=== PATIENT | male | born 1940 | race Caucasian/White ===

== ENCOUNTER 2019-01-05 13:30 | Day surgery (SDC) | payer OTHER ==
[~2019-01-05 13:30] MED LIST: ALBU90OI6 INH; ALPR1 PO; BENA10 PO; LEVFLO500 PO; METO100ER PO; MOME220I IH; OMEP20ER PO; PRED10 PO; Prednisone10 MG PO; ROSU10TA PO; TAMS.4ER PO; TIOT18 IH
== END 2019-01-05 22:58 | disposition home or self-care (01) ==
LOC: WOUND 13:30
DX: L97.821 Non-pressure chronic ulcer of other part of left lower leg limited to breakdown of skin (principal); S91.302A Unspecified open wound, left foot, initial encounter; I10 Essential (primary) hypertension; E78.5 Hyperlipidemia, unspecified; F41.9 Anxiety disorder, unspecified; J44.9 Chronic obstructive pulmonary disease, unspecified; F17.210 Nicotine dependence, cigarettes, uncomplicated; Z88.8 Allergy status to other drugs, medicaments and biological substances; Z79.82 Long term (current) use of aspirin; Z79.899 Other long term (current) drug therapy; X58.XXXA Exposure to other specified factors, initial encounter
CPT/HCPCS: G0463

== ENCOUNTER 2019-01-15 11:04 | Day surgery (SDC) | payer OTHER | END 2019-01-15 23:02 | disposition home or self-care (01) | LOC: WOUND 11:04 | DX: L97.821 Non-pressure chronic ulcer of other part of left lower leg limited to breakdown of skin (principal); I73.9 Peripheral vascular disease, unspecified; S91.302A Unspecified open wound, left foot, initial encounter; L97.811 Non-pressure chronic ulcer of other part of right lower leg limited to breakdown of skin; I10 Essential (primary) hypertension; F17.210 Nicotine dependence, cigarettes, uncomplicated; E78.5 Hyperlipidemia, unspecified; F41.9 Anxiety disorder, unspecified; J44.9 Chronic obstructive pulmonary disease, unspecified; Z79.899 Other long term (current) drug therapy | CPT/HCPCS: G0463 ==

== ENCOUNTER 2019-01-29 14:51 | Day surgery (SDC) | payer OTHER | END 2019-01-29 23:02 | disposition home or self-care (01) | LOC: WOUND 14:51 | DX: L97.522 Non-pressure chronic ulcer of other part of left foot with fat layer exposed (principal); I73.9 Peripheral vascular disease, unspecified; S91.302D Unspecified open wound, left foot, subsequent encounter; I10 Essential (primary) hypertension; E78.5 Hyperlipidemia, unspecified; F41.9 Anxiety disorder, unspecified; F17.210 Nicotine dependence, cigarettes, uncomplicated; Z79.899 Other long term (current) drug therapy | CPT/HCPCS: G0463 ==

== ENCOUNTER 2019-02-12 00:28 | Day surgery (SDC) | payer OTHER | END 2019-02-12 23:06 | disposition home or self-care (01) | LOC: WOUND 00:28 | DX: L97.821 Non-pressure chronic ulcer of other part of left lower leg limited to breakdown of skin (principal); I73.9 Peripheral vascular disease, unspecified; I10 Essential (primary) hypertension; E78.5 Hyperlipidemia, unspecified; F41.9 Anxiety disorder, unspecified; J44.9 Chronic obstructive pulmonary disease, unspecified; F17.210 Nicotine dependence, cigarettes, uncomplicated; Z79.899 Other long term (current) drug therapy | CPT/HCPCS: 87070; 87075; 87205 ==

== ENCOUNTER 2019-02-19 14:49 | Day surgery (SDC) | payer OTHER | END 2019-02-19 23:06 | disposition home or self-care (01) | LOC: WOUND 14:49 | DX: I96 Gangrene, not elsewhere classified (principal); L97.522 Non-pressure chronic ulcer of other part of left foot with fat layer exposed; I89.0 Lymphedema, not elsewhere classified; I10 Essential (primary) hypertension; D46.9 Myelodysplastic syndrome, unspecified; E78.5 Hyperlipidemia, unspecified; F41.9 Anxiety disorder, unspecified; J44.9 Chronic obstructive pulmonary disease, unspecified; F17.210 Nicotine dependence, cigarettes, uncomplicated; R73.02 Impaired glucose tolerance (oral); Z79.52 Long term (current) use of systemic steroids; Z79.899 Other long term (current) drug therapy | CPT/HCPCS: G0463 ==

== ENCOUNTER 2019-02-26 00:48 | Day surgery (SDC) | payer OTHER | END 2019-02-26 23:13 | disposition home or self-care (01) | LOC: WOUND 00:48 | DX: L97.821 Non-pressure chronic ulcer of other part of left lower leg limited to breakdown of skin (principal); I10 Essential (primary) hypertension; F41.9 Anxiety disorder, unspecified; J44.9 Chronic obstructive pulmonary disease, unspecified; F17.210 Nicotine dependence, cigarettes, uncomplicated; E78.5 Hyperlipidemia, unspecified; Z79.899 Other long term (current) drug therapy ==

== ENCOUNTER 2019-03-12 00:32 | Day surgery (SDC) | payer OTHER | END 2019-03-12 23:56 | disposition home or self-care (01) | LOC: WOUND 00:32 | DX: L97.821 Non-pressure chronic ulcer of other part of left lower leg limited to breakdown of skin (principal); I73.9 Peripheral vascular disease, unspecified; I87.2 Venous insufficiency (chronic) (peripheral); I10 Essential (primary) hypertension; J44.9 Chronic obstructive pulmonary disease, unspecified; F17.210 Nicotine dependence, cigarettes, uncomplicated; E78.5 Hyperlipidemia, unspecified; F41.9 Anxiety disorder, unspecified; Z79.899 Other long term (current) drug therapy ==

== ENCOUNTER 2019-03-26 00:25 | Day surgery (SDC) | payer OTHER | END 2019-03-26 23:03 | disposition home or self-care (01) | LOC: WOUND 00:25 | DX: L97.821 Non-pressure chronic ulcer of other part of left lower leg limited to breakdown of skin (principal); I73.9 Peripheral vascular disease, unspecified; I10 Essential (primary) hypertension; J44.9 Chronic obstructive pulmonary disease, unspecified; F17.210 Nicotine dependence, cigarettes, uncomplicated; E78.5 Hyperlipidemia, unspecified; F41.9 Anxiety disorder, unspecified; Z79.899 Other long term (current) drug therapy ==

== ENCOUNTER 2019-04-16 00:21 | Day surgery (SDC) | payer OTHER ==
[~2019-04-16 00:21] MED LIST changes: -BENA10 PO; -PRED10 PO; -ROSU10TA PO; -TAMS.4ER PO
== END 2019-04-16 23:12 | disposition home or self-care (01) ==
LOC: WOUND 00:21
DX: L97.821 Non-pressure chronic ulcer of other part of left lower leg limited to breakdown of skin (principal); J44.9 Chronic obstructive pulmonary disease, unspecified; I87.2 Venous insufficiency (chronic) (peripheral); I73.9 Peripheral vascular disease, unspecified; F17.210 Nicotine dependence, cigarettes, uncomplicated; I10 Essential (primary) hypertension; E78.5 Hyperlipidemia, unspecified; F41.9 Anxiety disorder, unspecified; Z99.81 Dependence on supplemental oxygen; Z79.899 Other long term (current) drug therapy
CPT/HCPCS: G0463

== ENCOUNTER 2019-05-10 14:19 | Inpatient (IN) | payer OTHER ==
[~2019-05-10] VITALS: Ht 188 cm; Wt 65.5 kg
[2019-05-10 15:04] LABS: BASOPHILS ABSOLUTE AUTO 0.04 K/mm3 (0.00-0.23); BASOPHILS PERCENT AUTO 0 % (0-2); EOSINOPHILS PERCENT AUTO 0 % (0-6); Hematocrit 28.4 % (37.0-53.0); Hemoglobin 9.3 g/dL (13.5-17.5); IMMATURE GRAN ABSOLUTE AUTO 0.38 K/mm3 (0.00-0.10); IMMATURE GRAN PERCENT AUTO 2 % (0-1); LYMPHOCYTES ABSOLUTE AUTO 0.22 K/mm3 (0.84-5.20); LYMPHOCYTES PERCENT AUTO 1 % (21-46); MONOCYTES ABSOLUTE AUTO 0.68 K/mm3 (0.16-1.47); MONOCYTES PERCENT AUTO 3 % (4-13); Mean Corpuscular HGB 34.4 pg (26.0-34.0); Mean Corpuscular HGB Conc 32.7 g/dL (31.5-36.5); Mean Corpuscular Volume 105 fL (80-100); NEUTROPHILS PERCENT AUTO 94 % (41-73); NRBC ABSOLUTE 0.09 K/mm3 (0.00-0.02); NRBC Auto 0.4 /100 WBC (0.0-0.2); Platelet Count 132 K/mm3 (150-400); RDW Standard Deviation 57.3 fL (35.1-46.3); White Blood Cell Count 21.22 K/mm3 (4.00-11.30)
[2019-05-10 15:05] LABS: Mean Platelet Volume 13.5 fL (9.1-12.4)
[2019-05-10 15:18] LABS: Alanine Aminotransfer (ALT/SGP 39 U/L (12-78); Albumin, Blood 2.5 g/dL (3.4-5.0); Alk Phos 77 U/L (50-136); Anion Gap 5 mmol/L (6-16); Aspartate Aminotrans (AST/SGOT 14 U/L (12-37); Bilirubin, Total 0.4 mg/dL (0.1-1.0); Blood Urea Nitrogen 74 mg/dL (8-24); Bun/Creatinine Ratio 98.7 (12.0-20.0); CO2, Blood 31 mmol/L (21-32); Calcium, Blood 8.2 mg/dL (8.5-10.1); Chloride, Blood 106 mmol/L (98-108); Creatinine, Blood 0.75 mg/dL (0.60-1.20); Globulin, Blood 2.4 g/dL (2.2-4.0); Glomerular Filtration Rate >60 (60-); Glucose, Blood 111 mg/dL (70-99); Potassium, Blood 4.9 mmol/L (3.5-5.5); Sodium, Blood 142 mmol/L (136-145); Total Protein, Blood 4.9 g/dL (6.4-8.2); Troponin I 0.016 ng/mL (0.000-0.040)
[2019-05-10] MEDS ORDERED: DULERA 200 MCG/13 GM INH (15:34)
[2019-05-10 15:55] LABS: Bicarbonate Venous 28.6 mmol/L (24.0-30.0); PO2 Venous 44.9 mmHg (38-42); pH Blood Venous 7.32 (7.34-7.37)
[2019-05-10] MEDS ORDERED: ALPRAZOLAM0.5 M1 PO (15:56)
[2019-05-10] MEDS ORDERED: HYDROCODONE-AC1 EAC1 PO (15:58)
[2019-05-10] MEDS ORDERED: ASPIR 8181 M1 PO (16:10)
[2019-05-10] MEDS ORDERED: TAMS.4ER PO (16:10)
[2019-05-10] MEDS ORDERED: ROSU10TA PO (16:13)
[2019-05-10] MEDS ORDERED: Benazepril HCl20 MG PO (16:13)
[2019-05-10] MEDS ORDERED: PRED5 PO (16:15)
[2019-05-10] MEDS ORDERED: Duoneb 2.5-0.5 M3 ML NEB (16:19)
[2019-05-10] MEDS ORDERED: DILTIAZEM 24HR240 M3 PO (16:20)
[2019-05-10 16:38] LABS: Source, Urine Voided
[2019-05-10 16:52] LABS: Bilirubin, Urine Neg (Neg); Blood, Urine 1+ (Neg); Glucose Qualitative, Urine Neg (Neg); Ketones, Urine 1+ (Neg); Leukocyte Esterase, Urine Neg (Neg); Nitrite, Urine Neg (Neg); Protein, Urine Neg (Neg); Specific Gravity, Urine 1.015 (1.003-1.022); Urobilinogen, Urine NORM (Normal)
[2019-05-10 17:04] LABS: Appearance, Urine Clear (Clear); Color, Urine Yellow (P-Yellow)
[2019-05-10 17:09] LABS: Bacteria Rare /hpf; Red Blood Cells, Urine 0-2 /hpf (0-2); Squamous Epithelial Cells Rare /hpf (Few); White Blood Cells, Urine 0-2 /hpf (0-5)
--- NOTE | 2019-05-10 17:30 | NUR ---
PT ADMITTED TO ICU AT 1700. PT ARRIVED AWAKE AND ORIENTED, VERY LITTLE SHELL TRIBE, AND VERY DYSPNEIC WITH RESP RATE 40'S; USING ACCESSORY MUSCLES. PT HYPOTENSIVE W MAP 50'S. NS INFUSING AT 200CC/HR. PT WISHES TO BE DNR/DNI; BUT IS AGREEABLE TO BIPAP IF NEEDED. PT DENIES C/O PAIN, BUT C/O SOB AND REQUESTS TO SIT UPRIGHT. RYTHYM SINUS W RATE 90'S. LUNGS VERY DIMINISHED T/O, COARSE, WET, NON-PRODUCTIVE COUGH. DR CASH AT BEDSIDE. PT MAY REQUIRE CRITICAL CONSULT AND POSSIBLE PICC LINE/BIPAP.
[2019-05-10 18:40] LABS: Source, Urine Catheter
[2019-05-10 18:57] LABS: Bilirubin, Urine Neg (Neg); Blood, Urine Neg (Neg); Glucose Qualitative, Urine Neg (Neg); Ketones, Urine 1+ (Neg); Leukocyte Esterase, Urine Neg (Neg); Nitrite, Urine Neg (Neg); Protein, Urine Neg (Neg); Urobilinogen, Urine NORM (Normal)
[2019-05-10 19:09] LABS: Appearance, Urine Clear (Clear); Color, Urine Yellow (P-Yellow)
--- NOTE | 2019-05-10 19:30 | NUR ---
PATIENT HAVING DIFFICULTY WITH KEEPING BIPAP IN PLACE, VERBALIZED FEELING IF IT IS SUFFOCATING HIM. ATTEMPT TO PLACE ON 7L/NC BIOX LOW 80'S. DOCTOR MARIELENA IN TO SEE PATIENT, DECIDING TO NOT PLACE NG, AND WILL CONTINUE PROTONIX DRIP, PATIENT CAN HAVE SIPS OF WATER. ATIVAN GIVEN TO HELP PATIENT RELAX AND PICC LINE PLACED TO LEFT UPPER ARM
[2019-05-10] MEDS ORDERED: Aspir 8181 MG PO (19:43)
[2019-05-10] MEDS ORDERED: ALEVE220 MG PO (19:45)
--- NOTE | 2019-05-10 20:48 | NUR ---
DR SCALES AND DR PEGUERO CONSULTED ON PT. ONE UNIT OF [facility]S STARTED PER DR SCALES. 500CC NS BOLUS GIVEN PRIOR TO BLOOD PER DR CASH. URINARY CATHETER PLACED W/O DIFF D/T RETENTION/FREQUENCY/URGENCY AND SEPSIS/RESP FAILURE STATUS PER DR SCALES. UROJET/LIDOCAINE USED. PT TOLERATED PROCEDURE VERY WELL. DR SCALES SPOKE W PT'S . CONSENT WAS OBTAINED FOR PICC LINE ACCESS IS POOR AND PT MAY REQUIRE PRESSORS FOR HYPOTENSION. BIPAP ORDERED BY DR SCALES ANDF PLACED BY RT 01/16. REPORT GIVEN TO ANAMIKA GARCIA AT 1930. PICC PLACED ONCE PT PLACED ON BIPAP. PT REQUIRED ATIVAN TO KEEP BIPAP ON. PICC PLACED TO KATINA W/O DIFFICULTY.
--- NOTE | 2019-05-11 01:38 | NUR ---
PATIENT HAVING DIFFICULT TIME KEEPING NON-REBREATHER MASK IN PLACE. PATIENT ALSO TAKING OF OXYGEN WHEN USING THE NC. WHEN BIPAP IN PLACE PATIENT BECOMING VERY AGITATED AND VERBALIZED THAT IT WAS MAKING HIM FEEL IF HE IS GOING TO PASS OUT. WHEN REPLACING NON-REBREATHER MASK PATIENT VERBALIZED " WHY CAN'T YOU LET ME SLEEP" DOCTOR LOYDA GIVEN A UPDATE AND ORDER OBTAINED FOR PRECEDEX AND LEVOPHED. WILL CONTINUE TO ATTEMPT TO KEEP OXYGEN IN PLACE.
[2019-05-11 03:29] LABS: BASOPHILS ABSOLUTE AUTO 0.03 K/mm3 (0.00-0.23); BASOPHILS PERCENT AUTO 0 % (0-2); EOSINOPHILS PERCENT AUTO 0 % (0-6); Hematocrit 29.4 % (37.0-53.0); Hemoglobin 9.7 g/dL (13.5-17.5); IMMATURE GRAN ABSOLUTE AUTO 0.27 K/mm3 (0.00-0.10); IMMATURE GRAN PERCENT AUTO 1 % (0-1); LYMPHOCYTES PERCENT AUTO 1 % (21-46); MONOCYTES ABSOLUTE AUTO 0.33 K/mm3 (0.16-1.47); MONOCYTES PERCENT AUTO 2 % (4-13); Mean Corpuscular HGB 33.7 pg (26.0-34.0); NEUTROPHILS ABSOLUTE AUTO 18.89 K/mm3 (1.96-9.15); NEUTROPHILS PERCENT AUTO 96 % (41-73); NRBC ABSOLUTE 0.08 K/mm3 (0.00-0.02); NRBC Auto 0.4 /100 WBC (0.0-0.2); Platelet Count 114 K/mm3 (150-400); RDW Coefficient Variation 16.3 % (11.7-14.2); Red Blood Cell Count 2.88 M/mm3 (4.30-5.90); White Blood Cell Count 19.62 K/mm3 (4.00-11.30)
[2019-05-11 03:30] LABS: Mean Corpuscular Volume 102 fL (80-100); Mean Platelet Volume 13.4 fL (9.1-12.4)
[2019-05-11 03:45] LABS: Alanine Aminotransfer (ALT/SGP 34 U/L (12-78); Albumin, Blood 2.3 g/dL (3.4-5.0); Alk Phos 71 U/L (50-136); Anion Gap 5 mmol/L (6-16); Aspartate Aminotrans (AST/SGOT 12 U/L (12-37); Bilirubin, Total 0.4 mg/dL (0.1-1.0); Blood Urea Nitrogen 64 mg/dL (8-24); Bun/Creatinine Ratio 104.4 (12.0-20.0); CO2, Blood 30 mmol/L (21-32); Calcium, Blood 8.1 mg/dL (8.5-10.1); Chloride, Blood 111 mmol/L (98-108); Creatinine, Blood 0.61 mg/dL (0.60-1.20); Globulin, Blood 2.3 g/dL (2.2-4.0); Glomerular Filtration Rate >60 (60-); Glucose, Blood 112 mg/dL (70-99); Potassium, Blood 4.9 mmol/L (3.5-5.5); Sodium, Blood 146 mmol/L (136-145); Total Protein, Blood 4.6 g/dL (6.4-8.2)
--- NOTE | 2019-05-11 06:00 | NUR ---
SUMMARY PATIENT REMOVING OXYGEN T/O NIGHT, BIOX DOWN TO 60% ON RA. DUE TO CONTINUED DROP IN BIOX AT APROX 0330 ORDER OBTAINED FOR PRECEDEX AND TO PLACE BIPAP. PATIENT REQUIRING BILAT WRIST RESTRAINTS TO REMEMBER TO NOT PULL ON BIPAP AND OTHER LINES. NO BM T/O NIGHT. NO C/O NAUSEA.
--- NOTE | 2019-05-11 08:30 | NUR ---
PT REMAINS ON BIPAP WITH PRECEDEX GTT INFUSING. CONTINUES TO BE RESTLESS IN BED AND PULLING OFF TUBES FROM BIPAP WITH BILATERAL WRIST RESTRAINTS IN PLACE. CONTINUE TO RE-ORIENT AND REPOSITION FOR COMFORT. NPO STATUS FOR NOW UNTIL INCREASE IN MENTATION, ORAL CARE DONE FOR DRY MOUTH. CONTINUE TO MONITOR AND TX PER ORDERS.
--- NOTE | 2019-05-11 14:25 | NUR ---
TOOK BIPAP OFF FOR ORAL CARE. INCREASE MENTATION NOTED. A&O X3. EXPRESSED DOES NOT LIKE TO WEAR BIPAP. RE-EDUCATED REASON FOR BIPAP. TRIAL OF HIGH FLOW O2 15L NC PLACED BUT SATS DECREASED TO 86% BUT ABLE TO RAISE SATS AFTER MOUTH CLOSED AND SLOW DEEP BREATHING EXERCISES. BP NOT STABLE OFF BIPAP. INSTRUCTED TO PATIENT TO PLACE BIPAP BACK. PATIENT ASKING FOR A PEPSI TO DRINK, STATES "I HAVEN'T EATEN IN TWO DAYS". WILL DISCUSS WITH DR SANZ REGARDING TX PLAN.
--- NOTE | 2019-05-11 18:37 | NUR ---
SHIFT SUMMARY PT BEEN ON BIPAP MOST OF SHIFT WITH X2 BREAKS WITH 02 HIGH FLOW 15L. INCREASE MENTATION THIS AFTERNOON. TALKING WITH STAFF AND VERY AWARE OF DISEASE PROCESS. LUNGS WITH OCC. COARSE WHEEZE BUT OTHERWISE CLEAR/DIMINISHED. REMAINS NPO UNTIL THIS EVENING WHEN DR PEGUERO ADVANCED DIET TO FULL LIQUIDS. PT REQUESTING FOR PEPSI TO DRINK; TOLERATED WELL WITH NO COUGHING NOTED. PRECEDEX GTT INFUSING, DC'D RESTRAINTS DUE TO MEETING CRITERIA. WILL REPLACE BIPAP IF SATS <88% PRN. NO OTHER CHANGES NOTED. WILL REPORT OFF TO NOC SHIFT.
[2019-05-11] MEDS ORDERED: DULERA 200 MCG/13 GM INH (19:28)
[2019-05-11] MEDS ORDERED: PROAIR DIGIHAL90 MCG INH (19:28)
--- NOTE | 2019-05-11 20:04 | NUR ---
PATIENT RESTING QUIETLY IN BED, BIPAP OFF AND PLACED ON 9L/NC. PATIENT ABLE TO HOLD GOOD CONVERSATION WITH BIOX 88-91% OCCASIONAL MOIST NONPRODUCTIVE COUGH. PATIENT VERBALIZED THAT HE DOESN'T WANT TO GO BACK ON THE BIPAP, "I WANT TO GO LIKE MY MOM DID" "PAIN FREE AND IN HER SLEEP WITH THAT FAKE MORPHINE" PATIENT INFORMED THAT I WILL TRY NOT TO REPLACE THE BIPAP IF WE DON'T NEED TO. PRECEDEX CONTINUES AT 0.4MCG TO HELP PATIENT REMAIN RELAXED AND CALM. PROTONIX DRIP CONTINUES, NO C/O ABD PAIN OR NAUSEA.
[2019-05-12 04:41] LABS: BASOPHILS ABSOLUTE AUTO 0.01 K/mm3 (0.00-0.23); BASOPHILS PERCENT AUTO 0 % (0-2); EOSINOPHILS PERCENT AUTO 0 % (0-6); Hematocrit 22.4 % (37.0-53.0); Hemoglobin 7.2 g/dL (13.5-17.5); IMMATURE GRAN PERCENT AUTO 1 % (0-1); LYMPHOCYTES ABSOLUTE AUTO 0.15 K/mm3 (0.84-5.20); LYMPHOCYTES PERCENT AUTO 1 % (21-46); MONOCYTES ABSOLUTE AUTO 0.43 K/mm3 (0.16-1.47); MONOCYTES PERCENT AUTO 3 % (4-13); Mean Corpuscular HGB 33.2 pg (26.0-34.0); Mean Corpuscular HGB Conc 32.1 g/dL (31.5-36.5); Mean Corpuscular Volume 103 fL (80-100); NEUTROPHILS ABSOLUTE AUTO 13.92 K/mm3 (1.96-9.15); NEUTROPHILS PERCENT AUTO 95 % (41-73); NRBC ABSOLUTE 0.09 K/mm3 (0.00-0.02); NRBC Auto 0.6 /100 WBC (0.0-0.2); Platelet Count 95 K/mm3 (150-400); RDW Coefficient Variation 15.9 % (11.7-14.2); RDW Standard Deviation 59.5 fL (35.1-46.3); Red Blood Cell Count 2.17 M/mm3 (4.30-5.90); White Blood Cell Count 14.71 K/mm3 (4.00-11.30)
[2019-05-12 04:46] LABS: Mean Platelet Volume 13.1 fL (9.1-12.4)
[2019-05-12 04:57] LABS: Albumin, Blood 2.5 g/dL (3.4-5.0); Anion Gap 3 mmol/L (6-16); Blood Urea Nitrogen 44 mg/dL (8-24); Bun/Creatinine Ratio 84.6 (12.0-20.0); CO2, Blood 32 mmol/L (21-32); Calcium, Blood 7.9 mg/dL (8.5-10.1); Chloride, Blood 111 mmol/L (98-108); Creatinine, Blood 0.52 mg/dL (0.60-1.20); Glomerular Filtration Rate >60 (60-); Glucose, Blood 215 mg/dL (70-99); Phosphorus, Blood 2.9 mg/dL (2.5-4.9); Potassium, Blood 4.2 mmol/L (3.5-5.5); Sodium, Blood 146 mmol/L (136-145)
--- NOTE | 2019-05-12 05:56 | NUR ---
SUMMARY PATIENT SLEEPING OFF AND ON T/O NIGHT. PATIENT REFUSING BIPAP. OXYGEN IN PLACE TITRATING UP TO 11L/ HIGH FLOW N/C. PATIENT REQUESTING PEPSI TO DRINK, FEEDING SELF WITH NO DIFFICULTY. WHILE SLEEPING PATIENT HAS WET SOUNDING RESP, AWAKENS EASILY AND HAS STRONG COUGH, PRODUCING SMALL AMT OF THICK YELLOW SPUTUM. AT TIMES PRODUCING DARK BROWN SPUTUM LOOKING LIKE PEPSI. NO C/O PAIN OR NAUSEA. NO BM T/O NIGHT. H&H DROP I&O POSITIVE. PRECEDEX NOW OFF AND PATIENT RESTING QUIETLY. PATIENT HAS VERBALIZED SEVERAL TIMES DESIRE TO GO HOME
--- NOTE | 2019-05-12 08:53 | NUR ---
PT AWAKE AND COMMUNICATING WITH STAFF. REQUESTING FOR A PEPSI TO DRINK. REMAINS OFF BIPAP AND ON 11L HIGH FLOW O2 NC WITH SATS 88-89%. SOB NOTED WITH TALKING AND TACHYPNEIC NOTED. LUNGS WET SOUNDING WITH FAINT WHEEZE. UPPER AIRWAY WET RATTLE NOTED. SMALL AMOUNT LIGHT BAGLEY SECRETIONS WITH BROWN FLEX NOTED. REFUSING TO EAT BREAKFAST, BUT WILLING TO DRINK ENSURE DRINK ALONG WITH PEPSI, STATES "I JUST NOT HUNGRY". UP TO CHAIR WITH LIFT; TOLERATED WELL. CONTINUE TO TX PER ORDERS
--- NOTE | 2019-05-12 13:59 | NUR ---
called back she was tearfull he was confussed and conversation difficult. She wants to stay the course for now but wants him comfortable. advised her that phsycians may call with change of plan if he worsens
--- NOTE | 2019-05-12 17:33 | NUR ---
SHIFT SUMMARY PT AWAKE AND ALERT WITH OCCASIONAL CONFUSION NOTED AT TIMES BUT REDIRECTS WELL. VERY [place]. HAS REMAINED OFF BIPAP T/O THE DAY. WAS TOLERATING HIGH FLOW O2 AND WAS ABLE TO TITRATE O2 LEVELS DOWN TO 7L/NC KEEPING SATS >88%. SOB NOTED WITH EXERTION AND TACHYPNEIC WHILE LAYING IN BED WHEN TALKING. LUNGS VERY MOIST AT BEGINNING OF SHIFT BUT HAVE IMPROVE TO CLEAR/COARSE/RALES AT TIMES. ALBUMIN AND LASIX GIVEN X1 ALONG WITH 1 UNIT PRBC GIVEN FOR LOW HGB. VSS. POOR APPETITE, NOT WANTING TO EAT FOOD ONLY LIQUID DRINKS. ABLE TO TAKE IN SUPPLEMENTAL DRINKS, TOLERATING WELL. PATIENT STATING WANTING TO HAVE A BOWEL MOVEMENT BUT IS HOLDING IT IN. INSTRUCTED/RE-EDUCATED THE IMPORTANCE TO HAVE A BOWEL MOVEMENT, ATTENDS IN PLACE. PICC LINE DRESSING CHANGED. UP TO CHAIR WITH LIFT; TOLERATED WELL. NO OTHER CHANGES NOTED, CONTINUE TO TX PRN. WILL REPORT OFF TO NOC SHIFT.
--- NOTE | 2019-05-12 22:00 | NUR ---
PATIENT RESTING IN BED, BIOX DROPPING TO LOW 80'S. REQUIRING 11L/NC AND NON-REBREATHER MASK FLUSH TO MAINTAIN BIOX 88-90% PATIENT AWAKE ANSWERING ALL QUESTIONS APPROPRIATELY, MOIST COUGH WITH SMALL AMT OF LIGHT YELLOW SPUTUM. PRECEDEX IV RESTARTED TO HELP PATIENT RELAX. DOCTOR YVON NOTIFIED OF CHANGE IN CONDITION AND PATIENTS CONTINUED REFUSAL OF BIPAP. PATIENT ASSISTING WITH REPOSITIONING IN BED FOR COMFORT.
--- NOTE | 2019-05-12 23:11 | NUR ---
PATIENT MORE RELAXED AND MAINTAINING BIOX ON 9L/NC. PATIENT SLIGHTLY FORGETFUL REORIENTATION EASILY. PRECEDEX CONTINUES AT 0.4MCG
--- NOTE | 2019-05-13 02:07 | NUR ---
PATIENT INCONT OF LARGE THICK LIQUID BLACK/ MAROON WITH BLACK CLOTS. LINEN CHANGED AND ATTENDS PLACED
--- NOTE | 2019-05-13 03:04 | NUR ---
PATIENT CONTINUES TO HAVE FREQUENT LIQUID DARK MAROON STOOLS, FEWER CLOTS AND MORE LIQUID NOW. PATIENT PLACED ON NON-REBREATHER MASK ALONG WITH N/C DURING ATTENDS CHANGE DUE TO DROP IN BIOX AND SOB
[2019-05-13 04:39] LABS: BASOPHILS ABSOLUTE AUTO 0.01 K/mm3 (0.00-0.23); BASOPHILS PERCENT AUTO 0 % (0-2); EOSINOPHILS PERCENT AUTO 0 % (0-6); Hematocrit 18.5 % (37.0-53.0); Hemoglobin 6.2 g/dL (13.5-17.5); IMMATURE GRAN ABSOLUTE AUTO 0.24 K/mm3 (0.00-0.10); IMMATURE GRAN PERCENT AUTO 2 % (0-1); LYMPHOCYTES ABSOLUTE AUTO 0.19 K/mm3 (0.84-5.20); LYMPHOCYTES PERCENT AUTO 1 % (21-46); MONOCYTES ABSOLUTE AUTO 0.65 K/mm3 (0.16-1.47); MONOCYTES PERCENT AUTO 5 % (4-13); Mean Corpuscular HGB 33.5 pg (26.0-34.0); Mean Corpuscular HGB Conc 33.5 g/dL (31.5-36.5); Mean Platelet Volume 12.6 fL (9.1-12.4); NEUTROPHILS ABSOLUTE AUTO 12.82 K/mm3 (1.96-9.15); NEUTROPHILS PERCENT AUTO 92 % (41-73); NRBC ABSOLUTE 0.16 K/mm3 (0.00-0.02); NRBC Auto 1.2 /100 WBC (0.0-0.2); Platelet Count 74 K/mm3 (150-400); RDW Standard Deviation 60.7 fL (35.1-46.3); Red Blood Cell Count 1.85 M/mm3 (4.30-5.90); White Blood Cell Count 13.91 K/mm3 (4.00-11.30)
[2019-05-13 04:43] LABS: Mean Corpuscular Volume 100 fL (80-100)
[2019-05-13 04:53] LABS: Albumin, Blood 2.2 g/dL (3.4-5.0); Anion Gap 2 mmol/L (6-16); Blood Urea Nitrogen 33 mg/dL (8-24); CO2, Blood 35 mmol/L (21-32); Calcium, Blood 7.5 mg/dL (8.5-10.1); Chloride, Blood 112 mmol/L (98-108); Creatinine, Blood 0.53 mg/dL (0.60-1.20); Glomerular Filtration Rate >60 (60-); Glucose, Blood 141 mg/dL (70-99); Phosphorus, Blood 2.2 mg/dL (2.5-4.9); Potassium, Blood 3.4 mmol/L (3.5-5.5); Sodium, Blood 149 mmol/L (136-145)
--- NOTE | 2019-05-13 05:38 | NUR ---
DOCTOR MARIELENA NOTIFIED OF MAROON STOOLS STARTING AT 0200, AND OF THIS MORNING H&H AND GIVEN UPDATE ON PATIENT STATUS. SEE NEW ORDERS.
--- NOTE | 2019-05-13 06:19 | NUR ---
SUMMARY PATIENT RESTING IN BED PRECEDEX AT 0.2MCG TO HELP PATIENT RELAX. PATIENT CONTINUES TO BE VERY SOB WITH SLIGHT ACTIVITY, ON 9L/NC AND PLACING NON-REBREATHER MASK IN ADDITION TO N/C DURING REPOSITIONING AND CHANGING ATTENDS. AT APROX 0200 PATIENT STARTED PASSING DARK MAROON LIQUID STOOLS, NO C/O NAUSEA. PROTONIX DRIP RESTART AND PLAN TO TRANSFUSE 3 UNITS PRBC WITH LASIX BETWEEN UNITS. PATIENTS GIVEN UPDATE AND PATIENT ABLE TO TALK TO HIS ON THE TELEPHONE.
--- NOTE | 2019-05-13 06:44 | NUR ---
DOCTOR MARIELENA COLEMAN TO SEE PATIENT, OK FOR WATER AT THIS TIME
--- NOTE | 2019-05-13 14:31 | NUR ---
PALLIATIVE CARE VISITS - Summary of visits and case conferences: Multiple visits with pt in his room and his , Katerine by phone. "Manuel" and Katerine are well known to me personally. Case conferenced with both pt's Drs and RN t/o day also. Per pt and 's request and with VO obtained and entered, pt placed on comfort care. Pt to be transferred out of ICU and visits from his to be allowed thru RN document control supervisor. Screeners and ICU staff informed to allow Katerine to visit if she is able to pass Covid-19 screening. Pt's chief c/o at this time is the dyspnea and GI bleeding. He verbalizes, "this is no way to ". He is referring to recent rectal tube insertion, dyspnea, and weakness. He does not want to return home, stating, "I can't do anything. I'm worthless." He is concerned about his attempting to care for him at home even with hospice support. Much time spent listening and supporting pt, encouraging expression of feelings. He is very [place] but reported he could hear me better than most with his hearing aides in. He becomes extremely dyspnic with any attempt at conversation. Once he becomes dyspnic, nonverbal indicators of anxiety noted as well. We discussed RX and TX to be discontinued and those included in comfort care orders. Pt again states that if his is in agreement his top priorities are to be comfortable, to see his , to drink a pepsi. Orders obtained and entered to achieve pt goals. Katerine given instructions on procedure for screening and visiting. All changes reviewed with pt's bedside RN.
--- NOTE | 2019-05-13 14:47 | NUR ---
PT STATUS CHANGED TO COMFORT CARE PER PT'S AND FAMILY REQUEST. PT'S IS CURRENTLY AT THE BEDSIDE VISITING PT. PT GIVEN PO PRN ATIVAN PT WAS TRANSITIONED OFF OF PRECEDEX. HOLCOMB, PICC AND RECTAL TUBE REMAIN IN PLACE FOR PT'S COMFORT. PT HAS BED ASSIGNED ON MEDICAL FLOOR ROOM 339.
--- NOTE | 2019-05-13 15:12 | NUR ---
TRANSFER OF CARE REPORT CALLED TO RADHA PINTO PT TRANSFERRED TO ROOM 339 VIA BED ESCORTED BY GEGE ALEGRE.
--- NOTE | 2019-05-13 15:40 | NUR ---
COMFORT CARE VISIT: Pt being transferred from ICU to medical floor during my visit with who arrived to visit. Pt appears much less anxious now that his is present. Discussed needs with pt/. Will see them in the am for s/s assessment and mangement and support. states her needs are met at present and pt very happy to have her her.
--- NOTE | 2019-05-13 17:15 | NUR ---
PAL CARE COMFORT CARE VISIT: Called by RN, reporting s/s of airhunger, dyspnea and anxiety out of control after transfer from ICU. Visit made with pt's RN. Discussed medications to give, plan for ongoing rx, repositioned pt to left side. Pt has fan on table and cool cloth on head already. Pt removing blankets and O2 tubing. Attempted to replace O2 but pt cont to remove. agrees with leaving O2/tubing off. Pt is too dyspnic to talk. Increased pallor and circumoral cyanosis noted from my visits earlier today. Discussed with some s/s that she is seeing and that she may begin to see due to rapid progression and changes in pt. Pt is progressing and actively dying at this time. Time spent supporting .
--- NOTE | 2019-05-13 18:51 | NUR ---
SHIFT SUMMARY PATIENT TRANSFERRED FROM ICU TO MEDICAL FLOOR, RECEIVED REPORT FROM DAVID. PATIENT'S BENJY PRESENT AT THE BEDSIDE. ARRIVED WITH SEVERE DYSPNEA/AIR HUNGER, AGITATION, DISCOMFORT. PATIENT ON COMFORT CARE. GAVE ROXANOL, PATIENT CONTINUED WITH SYMPTOMS. CALLED DR. YOON TO SHARE ASSESSMENT, HE STATED THAT IT WAS OK TO GIVE ATIVAN IV AT THIS TIME, EVEN WITH RECENT PO ADMINISTRATION. PATIENT DID NOT RECEIVED RELIEF FROM IV ATIVAN. ANOTHER DOSE OF ROXANOL WAS GIVEN, DR. YOON NOTIFIED, IV MORPHINE ORDERED. CALLED LUIS BESS, PALLIATIVE CARE RN TO ROUND ON PATIENT DUE TO UNMANAGED SYMPTOMS. SHE CAME TO BEDSIDE; PATIENT CONTINUED WITH AIR HUNGER, SECRETIONS, DYSPNEA, AGITATION. PATIENT TOOK OFF OWN OXYGEN, DID NOT WANT TO KEEP OXYGEN ON. PATIENT'S AGREED THAT PATIENT WAS ABLE TO MAKE THAT DECISION. OXYGEN KEPT OFF FOR PATIENT'S COMFORT, PALLIATIVE RN AT BEDSIDE. PATIENT TIME OF 1716, CALLED DR. SON AT 171 TO NOTIFY. CHARGE NURSE RISHABH CALLED DONOR LINE. POST MORTEM CARE COMPLETED. PATIENT TO BE TRANSFERRED TO HOME OF CHOICE, [facility]
== END 2019-05-13 17:17 | DRG 871 ==
LOC: ER 14:19 → ICUE 16:47 → ICUW 16:47 → ICUE 17:00 → MEDS 05-13 15:35
PROVIDERS: Emergency Medicine; Internal Medicine Critical Care Medicine; ADMIT Internal Medicine
PROC: 30233N1 Transfusion of Nonautologous Red Blood Cells into Peripheral Vein, Percutaneous Approach (ICD-10-PCS; principal; 2019-05-10)
PROC: 02HV33Z Insertion of Infusion Device into Superior Vena Cava, Percutaneous Approach (ICD-10-PCS; 2019-05-10)
DX: A41.9 Sepsis, unspecified organism (principal); G93.41 Metabolic encephalopathy; R65.21 Severe sepsis with septic shock; J18.9 Pneumonia, unspecified organism; J96.22 Acute and chronic respiratory failure with hypercapnia; J96.21 Acute and chronic respiratory failure with hypoxia; K92.2 Gastrointestinal hemorrhage, unspecified; J44.0 Chronic obstructive pulmonary disease with (acute) lower respiratory infection; D62 Acute posthemorrhagic anemia; E87.2 Acidosis; F19.20 Other psychoactive substance dependence, uncomplicated; J44.1 Chronic obstructive pulmonary disease with (acute) exacerbation; R64 Cachexia; Z68.1 Body mass index [BMI] 19.9 or less, adult; Z51.5 Encounter for palliative care; D46.9 Myelodysplastic syndrome, unspecified; Z85.46 Personal history of malignant neoplasm of prostate; K21.9 Gastro-esophageal reflux disease without esophagitis; I10 Essential (primary) hypertension; E78.5 Hyperlipidemia, unspecified; I73.9 Peripheral vascular disease, unspecified; Z99.81 Dependence on supplemental oxygen; Z87.891 Personal history of nicotine dependence; Z66 Do not resuscitate
CPT/HCPCS: 36415; 36430; 36569; 51703; 71045; 80053; 80069; 81001; 81003; 82272; 82803; 83605; 83690; 83880; 84145; 84443; 84484; 85025; 86850; 86900; 86901; 86923; 87040; 87081; 93005; 93010; 94640; 94660; 96361; 96365; 96368; 96375; 99285-25; C1751; C9113; J0456; J0696; J1720; J1940; J2060; J2405; J2930; J7030; J7040; J7050; J7120; P9016; P9046; U0002